=== PATIENT | male | born 1950 | race Caucasian/White ===

== ENCOUNTER 2018-08-30 07:46 | Inpatient (IN) | payer MEDICARE, OTHER ==
[2018-08-19 09:19] LABS: ABSOLUTE EOSINOPHILS 0.2 thou/uL (0.0-0.7); ABSOLUTE MONOCYTES 0.5 thou/uL (0.0-1.2); ABSOLUTE NEUTROPHILS 3.6 thou/uL (1.6-8.1); BASOPHILS 0.7 %; EOSINOPHILS 3.2 %; HEMOGLOBIN 14.2 gm/dL (14.0-18.0); LYMPHOCYTES 31.7 %; MCH 31.8 pg (26.0-34.0); MCHC 33.7 g/dL (28.0-37.0); MCV 94.5 fL (80.0-100.0); MONOCYTES 8.4 %; MPV 8.7 fl. (7.2-11.1); NUCLEATED RBCS 0 /100WBC; PLATELET COUNT* 211 thou/uL (150-400); RBC 4.45 mil/uL (4.50-6.00); RDW-CV 13.4 % (10.5-14.5); WBC 6.4 thou/uL (4.0-11.0)
[2018-08-19 09:43] LABS: APTT 28.2 Seconds (25.0-31.3); PROTIME 10.4 Seconds (9.20-11.50)
[2018-08-19 09:57] LABS: ALBUMIN 3.4 g/dL (3.4-5.0); CALCIUM 8.7 mg/dL (8.5-10.1); POTASSIUM 4.3 mmol/L (3.5-5.1); TOTAL BILIRUBIN 0.4 mg/dL (<0.1-1.0); TOTAL PROTEIN 7.3 g/dL (6.4-8.2)
[2018-08-19 10:50] LABS: ESR (SEDRATE) 19 mm/hr (0-20)
--- NOTE | 2018-08-19 17:07 | EKG ---
[place] [address] ELECTROCARDIOGRAM REPORT Name: ALBERTA DOBSON Room: [facility].#: [id number] Admission: Attend Phys: Deo Fraser Discharge: Date of : 52 Report #: [id number] THIS REPORT FOR: //name// [facility] Test Date: 2018-08-19 Test Time: 13:51:01 Pat Name: ALBERTA DOBSON Department: Room: Gender: M Senior Drafter: : 1950 Requested By: Jay Goodman Order Number: [id number] MD: Jean Paul Briceno Measurements Intervals [place] Rate: P: RI: QRS: QRSD: T: QT: QTc: Interpretive Statements Sinus bradycardia Normal EKG No previous ECG available for comparison Electronically Signed On 08-19-2018 17:06:48 CDT by Jean Paul Briceno [email or web address] <ELECTRONICALLY SIGNED> By: Jean Paul Briceno MD, [facility] 08/19/18 1706 1351 1351 Jean Paul Briceno MD, FACC /EPI
[2018-08-19 18:06] LABS: GLYCOHEMOGLOBIN (HGB A1C) 5.4 % (4.8-5.6)
[~2018-08-30] VITALS: Ht 185.4 cm; Wt 99.8 kg
[~2018-08-30 07:46] MED LIST: FISH OIL 1,001000 M2 PO; PRESERVISION T1 EACH PO; UNICOMPLEX M TA1 TA1 PO
[2018-08-30 15:30] VITALS: BP 122/71
--- NOTE | 2018-08-30 17:44 | NUR ---
PT ARRIVED TO UNIT 1400. A&Ox4. PT ON 2L OF OXYGEN PER NASAL CANULA. CONTINOUS PULSE OX IN PLACE 98%. VOIDED x1 SINCE SURGERY. IV FLUIDS INFUSING ORDERED. MEPILEX OVER KNEE IS CLEAN, DRY AND INTACT. LEFT PEDAL PULSE 2+ BILATERAL THIGH HIGH MAGNUS HOSE IN PLACE, WITH BILATERAL FOOT PUMPS. CPM TO START TONIGHT. TOLERATED MEAL. PAIN CONTROLED. BED ALARM SET. CALL LIGHT WITHIN REACH. WILL CONTINUE TO MONITOR.
--- NOTE | 2018-08-30 18:46 | NUR ---
NURSING DOCUMENTATION BY CRYSTAL AZEVEDO
[2018-08-30 20:29] VITALS: BP 120/63
[2018-08-30 23:45] VITALS: BP 119/64
[2018-08-31 04:00] VITALS: BP 107/60
[2018-08-31 04:55] LABS: HEMATOCRIT 34.7 % (42.0-52.0); HEMOGLOBIN 11.7 gm/dL (14.0-18.0)
--- NOTE | 2018-08-31 05:19 | NUR ---
ASSUMED CARE OF PATIENT AT APPROX 1930. ALERT AND ORIENTED X4. ASSESSMENT COMPLETED AND CHARTED. VSS ON 2 LITERS 02 VIA MA. NO COMPLAINTS OF NAUSEA OR SOA. PAIN HAS BEEN MANAGED WITH MEDICATION. FLUIDS AND ANTIBIOTICS INFUSED ORDERED. POLAR PACK IN PLACE ON SURGICAL SITE. RESTING COMFORTABLY ON BED ON HOURLY ROUNDS. CALL LIGHT IN REACH. NURSING WILL CONTINUE TO MONITOR.
[2018-08-31 07:45] VITALS: BP 95/52
--- NOTE | 2018-08-31 13:06 | NUR ---
RECIEVED O.T. ORDER. WILL DEFER TO P.T. AND NURSING AT THIS TIME. PLEASE ORDER FURTHER O.T. SERVICES IF NEEDED.
--- NOTE | 2018-08-31 14:47 | NUR ---
SPOKE TO THE PATIENT TO DISCUSS HOME SITUATION, DISCHARGE PLANNING, AND TO INFORM OF THE ROLE OF CM. PATIENT ALERT, ORIENTED, AND INDEPENDENT WITH ADL'S. 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 PATIENT RESIDED AT HOME WITH SPOUSE AND SHE IS ABLE TO ASSIST THE PATIENT AT HOME AT D/C. PATIENT OWNS A WALKER AND TOILET RISER. PATIENT PLANS TO RETURN HOME A D/C AND HAVE HH SERVICES WITH [facility]. CM WILL REMAIN AVAILABLE TO ASSIST AND FOLLOW NEEDED.
[2018-08-31 15:19] VITALS: BP 95/52
[2018-08-31 16:28] VITALS: BP 104/65
[2018-08-31 16:30] VITALS: BP 116/57
--- NOTE | 2018-08-31 16:51 | NUR ---
PATIENT REMAINS ALERT AND ORIENTED. PAIN CONTROLLED WITH OXYIR. PHYSICAL THERAPY WAS 2 HOURS LATE THIS AFTERNOON, PATIENT UNABLE TO DO CPM AFTER, WILL DO TONIGHT. IV SALINE LOCKED. TOLERATING MEALS. VOIDING PER URINAL. COLACE ORDERED. TEDS AND SCD'S IN PLACE. POLAR CARE IN USE. BED ALARM FOR SAFETY. WILL CONTINUE TO MONITOR.
[2018-08-31 20:00] VITALS: BP 146/67
[2018-09-01] VITALS (9 sets, daily range): BP systolic 124–142; BP diastolic 58–77
[2018-09-01 05:00] LABS: HEMATOCRIT 35.8 % (42.0-52.0); HEMOGLOBIN 12.1 gm/dL (14.0-18.0)
--- NOTE | 2018-09-01 05:15 | NUR ---
ASSUMED CARE OF PT AT 1900 PT ALERT AND ORIENTED VS AND ASSESSMENT AT BASELINE. LLE CMS CHECKS WNL DRSG CDI. PT HAVING PAIN CONTROL ISSUES AT THE BEGINING OF THE SHIFT ALTERNATED OXY WITH DILAUDID AND ALSO OBTAINED ORDERS FOR AMBIEN. PT REPORTED PAIN WAS CONTROLED PRIOR TO GOING TO SLEEP. PT SLEPT THROUGH THE NIGHT. WILL CONTINUE PLAN OF CARE.
--- NOTE | 2018-09-01 09:52 | NUR ---
CALLED IN PRESCRIPTION FOR ELIQUIS, WRITTEN,TO PT.'S [facility]ARM[facility] IN [place]. WILL CALL BACK FOR COPAY.
[2018-09-01] MEDS ORDERED: ELIQUIS2.5 MG PO (10:46)
[2018-09-01] MEDS ORDERED: OXYCODONE HCL 55 MG PO (10:46)
[2018-09-01] MEDS ORDERED: ASPIRIN325 PO (10:49)
--- NOTE | 2018-09-01 11:51 | NUR ---
COPAY FOR NAYE AT [facility] IN [place] IS $21.93. WILL INFORM PT. HE IS NOT DISCHARGING TODAY PER NURSING DUE TO PAIN AND INABILITY TO DO STAIRS. NOTIFIED [facility], THAT PT.NOT DISCHARGING [phone].
--- NOTE | 2018-09-01 11:52 | NUR ---
SPOKE WITH ORTHO RESIDENT REGARDING PAIN CONTROL. ORDERS TO INCREASE OXYIR TO 5-15MG PO EVERY 3 HOURS NEEDED.
[2018-09-01] MEDS ORDERED: SENNA S TABLET1 EACH PO (16:27)
--- NOTE | 2018-09-01 17:59 | NUR ---
PT IS A&Ox4. ROOM AIR WITH 98%. VITALS STABLE, BP 142/67, P 71, TEMP 98.0. STAND BY ASSIST WITH GAIT BELT AND WALKER. PHYSICAL THERAPY PLANS DISCHARGING AFTER MORNING SESSION. BILATERAL THIGH HIGH TEDS AND FOOT PUMPS IN PLACE. DRESSING IS CLEAN, DRY, INTACT. PAIN CONTROLLED. FALL PRECAUTIONS IN PLACE. CALL LIGHT WITHIN REACH. WILL CONTINUE TO MONITOR.
--- NOTE | 2018-09-02 05:02 | NUR ---
ASSUMED PATIENT CARE AT 1900. pATIENT ALERT AND ORIENTED TIMES FOUR. SPOUSE AT BEDSIDE. MINOR COMPLAINTS OF PAIN, MANAGED WITH ORAL PAIN MEDICATION THROUGH THE NIGHT. iN CPM FOR 2 HOURS AT 2130, 09/01/18. PATIENT MORE CONFIDENT WITH ABILITY TO GO HOME. CLAIMS ADJUSTER AND HOURLY ROUNDS COMPLETED DOCUMENTED.
[2018-09-02 08:50] VITALS: BP 108/64
[2018-09-02 11:56] VITALS: BP 142/67
[2018-09-02 12:21] VITALS: BP 142/67
--- NOTE | 2018-09-02 14:09 | NUR ---
PT.DISCHARGED EARLIER. NOTIFIED [facility] /YAJAIRA AND FAXED HER DISCHARGE SUMMARY,ORDERS FROM ORTHO AND MED LIST TO [phone].
--- NOTE | 2018-09-02 15:11 | NUR ---
PT ALERT AND ORIENTED X 4. DENIES NAUSEA. INDICATES PAIN IS 3/10. PAIN MANAGED WITH PO MEDICATIONS. MEPILEX DRESSING ON LEFT KNEE-C/D/I. CMP IN AM. VS STABLE. POLAR PACK IN USE. THIGH HIGH MAGNUS THOMAS. PARTICIPATED WITH THERAPY IN AM. UP TO CHAIR FOR LUNCH. PT GIVEN PRESCRIPTIONS AND DISCHARGE INSTRUCTIONS. IV REMOVED. PT LEFT UNIT BY WHEEL CHAIR WITH NURSING STAFF WITH PERSONAL BELONGINGS TO LEAVE WITH SPOUSE/SON BY PRIVATE CAR.
[2018-09-02 15:20] VITALS: BP 142/67
[2018-09-02 15:22] VITALS: BP 142/67
--- NOTE | 2018-09-03 07:12 | OP ---
[address] [address] OPERATIVE REPORT Name: ALBERTA DOBSON Amaris Room: [address] [place] .R#: [id number] Admission: 08/30/18 Attend Phys: Deo Fraser Discharge: 09/02/18 Date of : 52 Report #: [id number] THIS REPORT FOR: //name// CC: Jay Goodman [facility] physician/PCP Jelani Mancera DICTATED BY: Anthony Almanza DO DATE OF SERVICE: 08/30/2018 DIAGNOSIS: Left knee degenerative joint disease. PROCEDURE PERFORMED: Left total knee arthroplasty. SURGEON: Jay Goodman DO. BRAZER INDUCTION: Anthony Almanza DO. ANESTHESIA: General, local and regional nerve block. ESTIMATED BLOOD LOSS: 150 mL. DRAINS: None. COMPLICATIONS: None. SPECIMENS: None. ANTIBIOTICS: Ancef 2 grams IV. CONDITION OF PATIENT: Stable to PACU. ORTHOPEDIC IMPLANTS: 1. Nini size 11 left Persona femur, CR. 2. Nini Persona left size G. 3. Nini Persona all poly patella, 32 mm diameter. 4. Nini Persona 13 mm medial congruent articular insert. INDICATIONS OF PROCEDURE: The patient is a pleasant 67-year-old male with severe osteoarthritis of the left knee, failed conservative measures. It was recommended he would be a candidate for left knee arthroplasty. All risks, benefits, complications and indications were reviewed with the patient and he wished to proceed. PROCEDURE DESCRIPTION: The patient brought to the operative suite, placed [facility] [address] [place] [address] OPERATIVE REPORT Name: ALBERTA DOBSON Room: [address] [place] [facility].#: [id number] Admission: 08/30/18 Attend Phys: Deo Fraser Discharge: 09/02/18 Date of : 52 Report #: [id number] supine on a well-padded table, given the benefit of general anesthesia, the left lower extremity sterilely prepped and draped in standard fashion. Timeout was taken to ensure correct patient, procedure, operative site, everybody in the room was in agreeance. At that time, a 20 blade scalpel was used to make incision on to the skin and subcutaneous tissue. A second 10 blade scalpel was used to perform a medial parapatellar arthrotomy. Anterior horns of medial and lateral menisci were excised as well as Hoffa's fat pad. The patella was everted. A drill was used to find the intramedullary canal of the femur. Distal intramedullary cutting guide was placed, 12 mm resection, set at 5 degrees valgus was taken. At that point, we then sized our femur to a size 11 with 3 degrees of external rotation. This cutting guide was pinned into place. We made anterior and posterior cuts followed by anterior and posterior chamfers. All osteophytes were removed as well as ACL and PCL. We then made a 10 mm resection at the high side of the tibia with a guide set in line with the medial third tibial tubercle, down to tibial crest and middle of the ankle. Once this was complete, all osteophytes were removed. Bovie electrocautery was used to remove the medial and lateral menisci. Tibia was sized to a size G. Trial 11 femur was placed as well as a 13 mm spacer and had excellent varus valgus stability and equal flexion and extension gaps. We then resurfaced the patella, sized to 32 mm, drilled 3 peg holes, had excellent patellar tracking. We then pulled the final parts, pulsatile lavaged the bone ends. Cemented first the tibia followed by the femur and patella. Once cement was allowed to harden, we then placed a final 13 mm articular insert, had excellent stability through range of motion with excellent mid flexion stability, equal varus valgus as well as flexion and extension. We then irrigated the knee once more, closed the capsule in [id number] fashion with #1 Vicryl, subcutaneously we closed with 2-0 Monocryl followed by running 3-0 Stratafix and Dermabond glue. Mepilex dressing and MAGNUS hose were applied. The patient was awoken from anesthesia and brought to PACU in stable condition. <ELECTRONICALLY SIGNED> By: Justin Burleson DO 09/03/18 0712 1312 [id number] Goodman DO /sherine
== END 2018-09-02 13:15 | disposition home health service (06) | DRG 470 ==
LOC: M.SUR 07:46 → M.ORTHSURG 13:20 → M.TBA 13:20 → M.SUR 13:51 → M.ORTHSURG 13:59
PROVIDERS: Orthopaedic Surgery; ADMIT Internal Medicine
PROC: 0SRD0J9 Replacement of Left Knee Joint with Synthetic Substitute, Cemented, Open Approach (ICD-10-PCS; principal; 2018-08-30)
DX: M17.12 Unilateral primary osteoarthritis, left knee (principal); Z79.899 Other long term (current) drug therapy; Z88.8 Allergy status to other drugs, medicaments and biological substances; Z87.891 Personal history of nicotine dependence